=== PATIENT | male | born 1990 | race Caucasian/White ===

== ENCOUNTER 2025-04-14 10:15 | Emergency (ER) | payer OTHER, SELFPAY ==
[2025-04-14 10:34] VITALS: BP 135/66; PULSE 84; RESP 16; TEMP 36.9; O2SAT 100; BMI 16.5
--- NOTE | 2025-04-14 13:25 | PC.NURSE ---
Patient visualized leaving by registration between [id number] and has not returned. VDC per protocol.
== END 2025-04-14 13:29 | disposition left against medical advice (07) ==
PROVIDERS: Emergency Provider Student in an Organized Health Care Education/Training Program
CPT/HCPCS: 99281